=== PATIENT | male | born 1995 | race Caucasian/White ===

== ENCOUNTER 2017-10-15 10:46 | Emergency (ER) | payer OTHER ==
[2017-10-15 10:52] VITALS: BP 109/80
--- NOTE | 2017-10-15 11:46 | EDPHY ---
H & P Time Seen by Provider: 10/15/17 10:53 HPI/ROS: CHIEF COMPLAINT: Right hand injury HISTORY OF PRESENT ILLNESS: 21-year-old male presents to the emergency department with pain in his right hand. The patient states last night he punched a wall with his right hand. Denies any other trauma or injury. He has pain with range of motion of his fingers. Denies pain in the right wrist. He denies fight bite. He believes his tetanus shot is current. ROS: Denies numbness or tingling in his fingers, pain in the right wrist or elbow. Past Medical/Surgical History: Negative Social History: [employer] student Smoking Status: Current some day smoker Physical Exam: Examination patient has superficial abrasion overlying 4th and 5th metacarpal heads. He has mild tenderness with palpation over the 4th and 5th MCP joints. No rotational deformities noted. Limited flexion of his right 4th and 5th fingers especially secondary to pain. Normal sensation to light touch with normal 2 point discrimination. No puncture wound. Strong radial pulse at the right wrist. Constitutional: Initial Vital Signs Temperature (C) 37 C 10/15/17 10:50 Heart Rate 75 10/15/17 10:50 Respiratory Rate 18 10/15/17 10:50 Blood Pressure 109/80 10/15/17 10:50 O2 Sat (%) 98 10/15/17 10:50 O2 Delivery Mode Room Air Allergies/Adverse Reactions: No Known Allergies Allergy (Unverified 10/15/17 10:48) Home Medications: Medication Instructions Recorded NK [No Known Home Meds] 10/15/17 MDM/Departure - MDM Imaging Results: Imaging Impressions Hand X-Ray 10/15/17 11:01 Impression: Nothing acute identified. Imaging: I viewed and interpreted images myself ED Course/Re-evaluation: 21-year-old male presents to the emergency department with right hand injury. Patient denies fight bite. X-rays of the right hand reveal no fractures. He was given wound care precautions and encouraged to use anti-inflammatories and ice to help reduce swelling. - Depart Disposition: Home, Routine, Self-Care Clinical Impression: Contusion of right hand Qualifiers: Encounter type: initial encounter Qualified Code(s): S60.221A - Contusion of right hand, initial encounter Condition: Good Instructions: Contusion in Adults (ED) Additional Instructions: Your x-rays did not reveal any evidence of fracture. Return to the emergency department if you develop numbness or tingling in her fingers, pain in her wrist , or any other concerns. Ibuprofen 600 mg every 8 hr as needed for pain. Referrals: Valentino Holman MD [Medical Doctor] - 5-7 days, if not improved (Orthopedic surgeon on-call)
--- NOTE | 2017-10-15 14:46 | ASMTCMCOM ---
CM Note CM Note Notes: CM SBIRT consult received. Reviewed chart. Pt presented to the Emergency Department with a contusion on right hand. Pt lives in [place]. This was the pt's first visit to this facility. According to provider notes, no acute findings were identified. Pt left prior to SBIRT evaluation. Spoke with IGNACIO Rutherford. Per Lois, pt likely not in need of alcohol resources at this time. CM available for any further issues or concerns. Date Signed: 10/15/2017 02:44 PM Electronically Signed By:Ramonita Padilla RN
== END 2017-10-15 11:54 | disposition home or self-care (01) ==
DX: S60.221A Contusion of right hand, initial encounter (principal); W22.8XXA Striking against or struck by other objects, initial encounter; Y92.9 Unspecified place or not applicable